=== PATIENT | female | born 1980 | race African-American/Black ===

== ENCOUNTER 2019-03-07 23:30 | Emergency (ER) | payer OTHER ==
[~2019-03-07] VITALS: Ht 162.6 cm; Wt 78.5 kg
[~2019-03-07 23:30] MED LIST: ADDERALL 30 MG30 MG PO; AMOXICILLIN 50500 MG PO; CARISOPRODOL 3350 MG PO; FLEXERIL; HYDROCODONE-AP1 EAC6 PO; IBUPROFEN 800800 M1 PO; MEDROL DOSPAK21 TAB PO; MEDROLDOSEPACK PO; NAPROSYN500 MG PO; NOHOMEMEDICATIONS; NORCO 5-325 TA1 EACH PO; NUCYNTA50 MG PO; OXYCONTIN10 M1 PO; PERCOCET 10-321 EACH PO; PERCOCET 5-3251 EACH PO; TRAMADOL 50 MG50 MG PO; VALIUM5 MG; VALIUM5 MG PO; ZYRTEC 10 MG TA10 MG PO
[2019-03-08] MEDS ORDERED: IBUPROFEN 600600 M1 PO (00:27)
[2019-03-08] MEDS ORDERED: NORCO 5-325 TA1 EAC1 PO (00:27)
[2019-03-08] MEDS ORDERED: AMOXICILLIN 50500 M1 PO (00:27)
[2019-03-08 00:37] VITALS: BP 141/91
== END 2019-03-08 00:45 | disposition home or self-care (01) ==
LOC: ER 23:30
DX: K03.81 Cracked tooth (principal); F17.210 Nicotine dependence, cigarettes, uncomplicated

== ENCOUNTER 2020-07-01 16:27 | Emergency (ER) | payer OTHER ==
[~2020-07-01] VITALS: Ht 162.6 cm; Wt 86.2 kg
[~2020-07-01 16:27] MED LIST changes: +AMOXICILLIN 50500 M1 PO; +IBUPROFEN 600600 M1 PO; +NORCO 5-325 TA1 EAC1 PO
[2020-07-01] MEDS ORDERED: LOSARTAN-HCTZ1 EAC3 PO (16:41)
[2020-07-01] MEDS ORDERED: HYDROCHLOROTH12.5 M2 PO (16:42)
[2020-07-01] MEDS ORDERED: LOSARTAN POTASS50 MG PO (16:43)
[2020-07-01] MEDS ORDERED: AMPHETAMINE SAL30 MG PO (16:43)
[2020-07-01 16:52] LABS: ABSOLUTE NEUTROPHILS 1.9 thou/uL (1.4-8.2); BASOPHILS 1.3 % (0.0-2.0); EOSINOPHILS 1.6 % (0.0-3.0); HEMATOCRIT 40.1 % (37.0-47.0); HEMOGLOBIN 13.5 gm/dL (12.0-15.0); LYMPHOCYTES 56.6 % (24.0-44.0); MCH 30.4 pg (26.0-34.0); MCHC 33.6 g/dL (28.0-37.0); MCV 90.5 fL (80.0-100.0); MONOCYTES 6.2 % (1.0-8.0); PLATELET COUNT 446 thou/uL (150-400); POLYS 34.3 % (36.0-66.0); RBC 4.43 mil/uL (4.20-5.00); RDW 12.8 % (10.5-14.5); WBC 5.6 thou/uL (4.0-11.0)
[2020-07-01 17:13] LABS: ANION GAP 12 mmol/L (7-16); BUN 12 mg/dL (7-18); CHLORIDE 100 mmol/L (98-107); CO2 24 mmol/L (21-32); GLUCOSE 111 mg/dL (74-106); MAGNESIUM 2.2 mg/dL (1.8-2.4); POTASSIUM 4.2 mmol/L (3.5-5.1); SGOT 16 U/L (15-37); SGPT 19 U/L (30-65); SODIUM 136 mmol/L (136-145); TOTAL BILIRUBIN 0.2 mg/dL (0.2-1.0); TROPONIN-I <0.06 ng/mL (<0.06)
[2020-07-01 17:18] LABS: CALCIUM 9.9 mg/dL (8.5-10.1)
[2020-07-01] MEDS ORDERED: NORFLEX100 MG PO (17:25)
[2020-07-01] MEDS ORDERED: NAPROSYN500 MG PO (17:25)
[2020-07-01 18:23] VITALS: BP 135/80
--- NOTE | 2020-07-02 07:31 | EKG ---
[facility] [place] [address] ELECTROCARDIOGRAM REPORT Name: MARY MILLAN Room #: [facility]#: [id number] Admission: 07/01/20 Attend Phys: Discharge: 07/01/20 Date of : 76 Report #: [id number] THIS REPORT FOR: cc: Radha Dunne MD, Karla L. MD Santiago, Patrick MD [facility] ~ THIS REPORT FOR: //name// [facility] ED Test Date: 2020-07-01 Test Time: 16:31:12 Pat Name: MARY MILLAN Department: Room: Gender: Check Out Cashier: [facility] : 1980 Requested By: Arvind Sampson Order Number: [id number] MD: Reagan Andrade Measurements Intervals [place] Rate: 86 P: 61 AL: 133 QRS: 44 QRSD: 77 T: 47 QT: 337 QTc: 403 Interpretive Statements Sinus rhythm Probable left atrial enlargement No previous ECG available for comparison Electronically Signed On 07-02-2020 7:31:34 MEDIA INTERN by Reagan Andrade [email or web address] <ELECTRONICALLY SIGNED> By: Reagan Andrade MD, FACC 07/02/20 0731 30 30 Reagan Andrade MD, [facility] /EPI
--- NOTE | 2020-07-02 20:25 | NUR ---
PATIENT CALLED ASKING TO SPEAK WITH CHARGE NURSE IN REGARDS TO A VOICEMAIL SHE HAD RECEIVED EARLIER. PATIENT WAS SEEN 07/01/20 AND HAD AN OUTPATIENT COVID SWAB SENT. RESULTS NEGATIVE. THIS NURSE DISCUSSED NEGATIVE RESULTS WITH PATIENT. NO FURTHER QUESTIONS.
== END 2020-07-01 18:23 | disposition home or self-care (01) ==
LOC: ER 16:27
PROVIDERS: Emergency Medicine
DX: M43.6 Torticollis (principal); J06.9 Acute upper respiratory infection, unspecified; F17.210 Nicotine dependence, cigarettes, uncomplicated; Z79.899 Other long term (current) drug therapy; Z20.828 Contact with and (suspected) exposure to other viral communicable diseases